=== PATIENT | male | born 1995 | race African-American/Black ===

== ENCOUNTER 2020-11-07 00:17 | Emergency (ER) | payer SELFPAY ==
[~2020-11-07] VITALS: Ht 182.9 cm; Wt 73.0 kg
[2020-11-07] MEDS ORDERED: BACITRACIN ZINC OINT UDPKT TOP ONE (01:15)
[2020-11-07 03:28] VITALS: BP 120/64
== END 2020-11-07 03:32 | disposition home or self-care (01) ==
LOC: ER 00:17 → EDBD 00:17 → ER 03:32
DX: S01.03XA Puncture wound without foreign body of scalp, initial encounter (principal); S50.812A Abrasion of left forearm, initial encounter; F12.10 Cannabis abuse, uncomplicated; Z87.891 Personal history of nicotine dependence; Z88.8 Allergy status to other drugs, medicaments and biological substances; W26.8XXA Contact with other sharp object(s), not elsewhere classified, initial encounter; Y93.89 Activity, other specified; Y92.89 Other specified places as the place of occurrence of the external cause; Y99.8 Other external cause status
CPT/HCPCS: 71045; 73090; 99284